=== PATIENT | female | born 1990 | race Two or more races ===

== ENCOUNTER 2022-03-08 11:56 | Observation (INO) | payer MEDICAID, SELFPAY ==
[2022-03-08 12:03] VITALS: BP 115/66; PULSE 98; RESP 16; TEMP 36.4; O2SAT 100
[2022-03-08 12:07] VITALS: BP 118/71; O2SAT 100
[2022-03-08 12:17] VITALS: BP 115/102; O2SAT 100
[2022-03-08 12:31] VITALS: BP 104/76; O2SAT 100
[2022-03-08 12:46] VITALS: BP 96/75; O2SAT 100
--- NOTE | 2022-03-08 13:24 | ED.GENADULT ---
HPI - General Adult General Chief complaint: Unspecified Stated complaint: hypermesis and dehydration - 11 weeks Time Seen by Provider: 03/08/22 12:48 History of Present Illness HPI narrative: This is a 31-year-old female who denies past medical history, G1, P0, LMP December 23, 2021, who presents to the emergency department complaining of vomiting for the past several days. She denies any fevers, chills or known sick contacts. She states the vomit is nonbloody. He contacted her OB and was prescribed a medication of unknown type, Without significant improvement. Related Data Allergies Allergy/AdvReac Type Severity Reaction Status Date / Time No Known Allergies Allergy Verified 03/08/22 11:58 Review of Systems Review of Systems: CONSTITUTIONAL: Denies fever, chills, or sweats. EYES: Denies visual changes, redness, or discharge. ENT: Denies rhinorrhea, congestion, sore throat, or otalgia. CARDIOVASCULAR: Denies chest pain, palpitations, or edema. RESPIRATORY: Denies cough or dyspnea. GASTROINTESTINAL: Nausea and vomiting denies abdominal pain or diarrhea. GENITOURINARY: Denies dysuria or hematuria. Denies vaginal bleeding SKIN: Denies rash or itching. MUSCULOSKELETAL: Denies back pain, joint pain, or myalgia. NEUROLOGIC: Denies headache, numbness, dizziness, or weakness. PSYCHIATRIC: Denies anxiety or depression. [facility] Social History Social History (Updated 03/08/22 @ 22:04 by Torey Chawla MD) Smoking status: Never smoker Alcohol intake: never Substance use: never Exam Narrative: GENERAL: Well-developed, well-nourished, appears fatigued HEAD: Normocephalic, atraumatic. EYES: PERRLA and EOMI. ENT: Nares clear, no rhinorrhea or epistaxis. Mucous membranes moist. Oropharynx without tonsillar hypertrophy exudate or other lesions. CHEST: Clear to auscultation. No respiratory distress. No wheezes rales or rhonchi HEART: Regular rate and rhythm. No murmur heard. Normal peripheral pulses. ABDOMEN: Soft, nontender, nondistended, normal active bowel sounds. EXTREMITIES: Normal range of motion. No edema. SKIN: Warm, dry, no rash. NEURO: No focal deficits. Alert and oriented x3. PSYCH: Normal mood and affect. Course Course Emergency Course: :15 - Bedside ultrasound demonstrates a single intrauterine with cardiac activity, rate 150s. No noted free fluid. 17:30 - Reassessed patient, she states she feels still feels nauseous. Despite IV fluids with dextrose, the patient has persistent ketonuria. Discussed admission for observation with Dr. Figueroa, who accepts the patient to labor and delivery. Vital Signs Vital signs: Vital Signs Temperature 97.6 F 03/08/22 12:03 Pulse Rate 98 03/08/22 12:03 Respiratory Rate 16 03/08/22 12:03 Blood Pressure 115/66 03/08/22 12:03 Pulse Oximetry 100 03/08/22 12:03 Oxygen Delivery Room Air 03/08/22 12:03 Temperature 97.2 F L 03/08/22 19:29 Pulse Rate 88 03/08/22 19:29 Respiratory Rate 16 03/08/22 19:29 Blood Pressure 104/67 03/08/22 19:29 Pulse Oximetry 98 03/08/22 19:29 Oxygen Delivery Room Air 03/08/22 12:03 Medical Decision Making Vital Signs Vital Signs: Vital Signs Temperature 97.6 F 03/08/22 12:03 Pulse Rate 98 03/08/22 12:03 Respiratory Rate 16 03/08/22 12:03 Blood Pressure 115/66 03/08/22 12:03 Pulse Oximetry 100 03/08/22 12:03 Oxygen Delivery Room Air 03/08/22 12:03 Temperature 97.2 F L 03/08/22 19:29 Pulse Rate 88 03/08/22 19:29 Respiratory Rate 16 03/08/22 19:29 Blood Pressure 104/67 03/08/22 19:29 Pulse Oximetry 98 03/08/22 19:29 Oxygen Delivery Room Air 03/08/22 12:03 Lab Data 03/08/22 13:27 03/08/22 13:57 Labs: Lab Results 03/08/22 03/08/22 03/08/22 Range/Units 13:27 13:39 13:57 WBC 7.3 (4.5-10.0) K/mm3 RBC 3.80 L (4.2-5.4) M/mm3 Hgb 12.0 (12.0-15.0) g/dL Hct 35.5 L (37.0-47.0) % MCV
[2022-03-08] MEDS: SODIUM CHLORIDE 0.9% IV 1,000 ML 999 ML IV CONT (13:28)
[2022-03-08] MEDS: METOCLOPRAMIDE HCL INJ 10 MG/2 ML VIAL IV PUSH ×2 (13:29→20:45)
[2022-03-08 13:36] LABS: Basophils Absolute Auto 0.1 K/mm3 (0.0-0.1); Basophils Percent Auto 0.7 % (0.2-1.2); Eosinophils Absolute Auto 0.1 K/mm3 (0-0.3); Hematocrit 35.5 % (37.0-47.0); Immature Granulocyte Absolute 0.05 K/mm3 (0.00-0.031); Immature Granulocyte Percent A 0.7 % (0-0.5); Mean Corpuscular HGB Conc 33.8 g/dl (32-36); Mean Corpuscular Hemoglobin 31.6 pg (26-34); Mean Corpuscular Volume 93.4 fl (80-100); Mean Platelet Volume 10.3 fl (7.4-10.4); Monocytes Absolute Auto 0.6 K/mm3 (0.1-0.6); Monocytes Percent Auto 7.9 % (2.6-8.5); Neutrophils Absolute Auto 4.7 K/mm3 (1.3-6.7); Neutrophils Percent Auto 63.7 % (45.5-73.1); Platelet Count Result 243 k/mm3 (150-375); Red Cell Distribution Width 11.9 % (11.5-14.5); White Blood Count 7.3 K/mm3 (4.5-10.0)
[2022-03-08 13:58] LABS: Appearance Urine Slightly Cloudy (Clear); Bilirubin Urine 2+ (Negative); Blood Urine Trace-lysed (Negative); Color Urine Dark Yellow (Yellow); Glucose Urine UA Negative (Negative); Ketones Urine 4+ mg/dL (Negative); Leukocyte Esterase Ur Negative LEU/UL (Negative); Nitrate Urine Negative (Negative); Protein Urine 2+ mg/dL (Negative); Specific Grav Ur >= 1.030 (1.001-1.035); Urobilinogen Urine 0.2 mg/dL (<2.0)
[2022-03-08 14:04] LABS: Mucus Urine Heavy /lpf; RBC Urine 0-2 /hpf (0-2); Squamous Epithelial Cell Urine Many /hpf (Few); WBC Urine 0-3 /hpf
[2022-03-08 14:20] LABS: Add Urine Microscopic? YES
[2022-03-08 14:41] LABS: Alanine Aminotransferase 62 U/L (6-35); Albumin Level 4.1 g/dL (3.5-5.1); Alkaline Phosphatase 70 U/L (38-126); Anion Gap 9 mmol/L (8-16); Aspartate Amino Transferase 34 U/L (14-36); Bilirubin,Total 0.6 mg/dL (0.2-1.3); Blood Urea Nitrogen 6 mg/dL (7-17); Calcium 8.7 mg/dL (8.4-10.2); Carbon Dioxide 21 mmol/L (22-30); Chloride 102 mmol/L (98-107); Estimated CRCL calculation 130 ml/min; Estimated Glomerular Filt Rate > 60; Glucose 81 mg/dL (65-110); Potassium 3.4 mmol/L (3.4-5.0); Sodium 132 mmol/L (137-145)
[2022-03-08] MEDS: DEXTROSE 5%/0.9% SOD CHL 1,000 ML 100 ML IV CONT (15:06)
[2022-03-08 16:56] LABS: Appearance Urine Clear (Clear); Bilirubin Urine 1+ (Negative); Blood Urine Trace-intact (Negative); Color Urine Yellow (Yellow); Glucose Urine UA 1+ mg/dL (Negative); Ketones Urine 4+ mg/dL (Negative); Leukocyte Esterase Ur Negative LEU/UL (NEGATIVE); Nitrate Urine Negative (Negative); Protein Urine 1+ mg/dL (Negative); Specific Grav Ur 1.025 (1.001-1.035)
[2022-03-08 17:13] LABS: Mucus Urine Heavy /lpf; RBC Urine 0-2 /hpf (0-2); Squamous Epithelial Cell Urine Moderate /hpf (Few); WBC Urine 0-3 /hpf (0-3)
[2022-03-08 17:14] LABS: Add Urine Microscopic? YES
[2022-03-08 18:45] LABS: Influenza A QL RT-PCR Negative (Negative); Influenza B QL RT-PCR Negative (Negative); SARS-CoV-2 RNA PCR Negative
--- NOTE | 2022-03-08 19:08 | PC.NURSE ---
Report called to MAURO in OB.
[2022-03-08 19:29] VITALS: BP 104/67; PULSE 88; PULSE 90; RESP 16; TEMP 36.2; O2SAT 98
--- NOTE | 2022-03-08 19:40 | PC.NURSE ---
Dr Figueroa called via narrative writer and informed of pt arrival to unit, that she requested crackers and orange juice and states she is feeling better, informed of UA results from ER and medications administered and times. Orders for a bag of D5LR bolus, reglan 10mg IVP Q6H, phenergan 12.5mg IVP Q6H, and that patient may be discharged home when she feels up to it. Orders received to contact Addie DUNBAR for further orders if needed.
[2022-03-08] MEDS: DEXTROSE 5%/LACTATED RINGERS 1,000 ML 999 ML IV CONT (19:48)
--- NOTE | 2022-03-08 19:54 | PC.NURSE ---
Addendum entered by Lily Cedeño RN 03/08/22 19:55: Pt arrives to unit at 1919 via ER bed with IV fluids running. Pt states that her nausea is gone and that she is feeling better and is able to void. Patient requests crackers and orange juice. Original Note: Pt arrives to unit via ER bed with IV fluids running. Pt states that her nausea is gone and that she is feeling better and is able to void. Patient requests crackers and orange juice.
[2022-03-08 20:36] VITALS: BMI 28.0
--- NOTE | 2022-03-08 20:38 | OBADM ---
This patient, Lorrie Soria, admitted to the OB room [facility] for observation. Patient/family oriented to hospital policies and general routines including ID bracelet, bed and alarms, visiting hours, pain management, procedures, bathroom and other care routines, personal items, smoking policy, room service/diet, and visiting hours. Patient/Family are encouraged to report perceived risks to care and to ask questions if they do not understand what they are told or what they should do.
--- NOTE | 2022-04-05 10:33 | PM.OBTRLD ---
OB - Triage/Final Diagnosis Visit Information Comments/Additional reasons for admission: I have assessed the risk for this patient, Lorrie Soria, and determined that she would benefit from observation care. Evaluation Laboratory results: Laboratory Tests 03/08/22 03/08/22 03/08/22 13:27 13:39 13:57 WBC 7.3 RBC 3.80 L Hgb 12.0 Hct 35.5 L MCV 93.4 MCH 31.6 MCHC 33.8 RDW 11.9 Plt Count 243 MPV 10.3 Immature Gran % (Auto) 0.7 H Neut % (Auto) 63.7 Lymph % (Auto) 26.0 [place] % (Auto) 7.9 Eos % (Auto) 1.0 Baso % (Auto) 0.7 Lymph # (Auto) 1.90 [place] # (Auto) 0.6 Eos # (Auto) 0.1 Baso # (Auto) 0.1 Abs Immat Gran (auto) 0.05 H Absolute Neuts (auto) 4.7 Absolute Nucleated RBC 0.0 Nucleated RBC % 0.0 Sodium 132 L Potassium 3.4 Chloride 102 Carbon Dioxide 21 L Anion Gap 9 BUN 6 L Creatinine 0.60 L Estim Creat Clear Calc 130 Estimated GFR > 60 Glucose 81 Calcium 8.7 Total Bilirubin 0.6 AST 34 ALT 62 H Alkaline Phosphatase 70 Total Protein 8.0 Albumin 4.1 Urine Color Dark yellow Urine Appearance Slightly cloudy Urine pH 6.0 Ur Specific [place] >= 1.030 Urine Protein 2+ H Urine Glucose (UA) Negative Urine Ketones 4+ H Ur Blood (Man) Trace-lysed Urine Nitrate Negative Urine Bilirubin 2+ H Urine Urobilinogen 0.2 Ur Leukocyte Esterase Leukocyte Esterase Rfl Negative Urine RBC 0-2 Urine WBC 0-3 Ur Squamous Epith Cells Many H Urine Mucus Heavy H Influenza A (RT-PCR) Influenza B (RT-PCR) SARS-CoV-2 RNA (RT-PCR) 03/08/22 03/08/22 16:45 18:04 WBC RBC Hgb Hct MCV MCH MCHC RDW Plt Count MPV Immature Gran % (Auto) Neut % (Auto) Lymph % (Auto) [place] % (Auto) Eos % (Auto) Baso % (Auto) Lymph # (Auto) [place] # (Auto) Eos # (Auto) Baso # (Auto) Abs Immat Gran (auto) Absolute Neuts (auto) Absolute Nucleated RBC Nucleated RBC % Sodium Potassium Chloride Carbon Dioxide Anion Gap BUN Creatinine Estim Creat Clear Calc Estimated GFR Glucose Calcium Total Bilirubin AST ALT Alkaline Phosphatase Total Protein Albumin Urine Color Yellow Urine Appearance Clear Urine pH 6.0 Ur Specific [place] 1.025 Urine Protein 1+ H Urine Glucose (UA) 1+ H Urine Ketones 4+ H Ur Blood (Man) Trace-intact Urine Nitrate Negative Urine Bilirubin 1+ H Urine Urobilinogen 1.0 Ur Leukocyte Esterase Negative Leukocyte Esterase Rfl Urine RBC 0-2 Urine WBC 0-3 Ur Squamous Epith Cells Moderate H Urine Mucus Heavy H Influenza A (RT-PCR) Negative Influenza B (RT-PCR) Negative SARS-CoV-2 RNA (RT-PCR) Negative Final Diagnosis (1) Intractable nausea and vomiting: Code(s): R11.2 - Nausea with vomiting, unspecified Status: Acute
== END 2022-03-08 21:00 | disposition home or self-care (01) ==
LOC: ANHED 17:31 → ANHOBPP 18:59
PROVIDERS: Admitting Provider Obstetrics & Gynecology; Emergency Provider Preventive Medicine Aerospace Medicine; Visit Provider Obstetrics & Gynecology
DX: O21.1 Hyperemesis gravidarum with metabolic disturbance (principal); Z3A.10 10 weeks gestation of pregnancy; O26.892 Other specified pregnancy related conditions, second trimester; R82.4 Acetonuria
CPT/HCPCS: 36415; 80053; 81001; 85025; 87636; 96361; 96374; 96376; 99285; G0378; G0379; J2765; J7030; J7042; J7121